=== PATIENT | female | born 1940 | race Caucasian/White ===

== ENCOUNTER 2017-10-20 15:03 | Day surgery (SDC) | payer MEDICARE, BC ==
[2017-10-17 11:34] LABS: BASOPHILS % (AUTO) 0.5 % (0-1); EOSINOPHILS # (AUTO) 0.1 X10'3 (0-0.9); EOSINOPHILS % (AUTO) 1.5 % (0-6); HEMATOCRIT 39.1 % (35.0-45.0); HEMOGLOBIN 13.1 g/dl (12.0-16.0); LYMPHOCYTES # (AUTO) 1.2 X10'3 (1.1-4.8); LYMPHOCYTES % (AUTO) 30.9 % (21-51); MEAN CORPUSCULAR HGB CONC 33.6 % (33.0-36.5); MEAN CORPUSCULAR VOLUME 92.2 FL (78-98); MEAN PLATELET VOLUME 7.7 FL (7.4-10.4); MONOCYTES # (AUTO) 0.3 X10'3 (0-0.9); MONOCYTES % (AUTO) 7.9 % (2-12); NEUTROPHILS # (AUTO) 2.4 X10'3 (1.8-7.7); NEUTROPHILS % (AUTO) 59.2 % (42-75); PLATELET COUNT 274 X10'3 (140-440); RED BLOOD COUNT 4.24 X10'6 (4.20-5.60); RED CELL DISTRIBUTION WIDTH 12.7 % (11.5-14.5)
[2017-10-17 11:44] LABS: ALBUMIN 4.1 G/DL (3.4-5.0); ANION GAP 7 (8-16); BLOOD UREA NITROGEN 14 MG/DL (7-18); CALCIUM 9.4 MG/DL (8.5-10.1); CHLORIDE 109 MMOL/L (99-107); GLUCOSE 102 MG/DL (70-104); POTASSIUM 4.4 MMOL/L (3.5-5.1); SODIUM 145 MMOL/L (135-145); eGFR 81 ML/MIN
[2017-10-17 11:45] LABS: CLARITY,URINE Clear (Clear); COLOR,URINE Yellow (Yellow); GLUCOSE, URINE Negative (Neg); KETONES,URINE Trace mg/dl (Neg); LEUKOCYTE ESTERASE ,URINE Small (Neg); NITRITES, URINE Negative (Neg); OCCULT BLOOD,URINE Negative (Neg); PH,URINE 5.5 (4.8-8.0); PROTEIN,URINE Negative (Neg); UROBILINOGEN,URINE 0.2 E.U/dL (0.2-1.0)
[2017-10-17 11:46] LABS: PARTIAL THROMBOPLASTIN TIME 24 SECONDS (22-32); PROTHROMBIN TIME 10.2 SECONDS (9.0-12.0)
[2017-10-17 11:48] LABS: UA COLLECTION TYPE NON-SPECIFIED
[2017-10-17 12:04] LABS: MUCUS STRANDS FEW /LPF (Neg); SQUAMOUS EPITHELIAL CELL,UR FEW /LPF (FEW)
[2017-10-17 12:07] LABS: BACTERIA,URINE NONE SEEN /HPF (Neg); RBC,URINE NONE SEEN /HPF (0-2); WBC,URINE 0-4 /HPF (0-4)
[~2017-10-20] VITALS: Ht 167.6 cm; Wt 60.9 kg
[~2017-10-20 15:03] MED LIST: CEPH500C5 PO; CLOP75TA15 PO
[2017-10-20] MEDS ORDERED: CIP750T PO (15:35)
[2017-10-20 15:36] VITALS: BP 129/97
[2017-10-20] MEDS ORDERED: diphenhydrAMINE 25mg capsule PO PRN (15:40)
[2017-10-20] MEDS ORDERED: LORazepam 0.5 MG tablet PO PRN (15:40)
[2017-10-20] MEDS ORDERED: NS IV SCH (16:00)
[2017-10-20] MEDS ORDERED: CEFAZOLIN IV SCH (16:00)
[2017-10-20] MEDS ORDERED: LIDOcaine 1% (10mg/ml) 2ml vial ONE (17:10)
[2017-10-20] MEDS ORDERED: cefazolin 1gm/NS 100mL 100 ML IV ONE (17:31)
[2017-10-20] MEDS ORDERED: ceFAZolin 1000mg inj ONE (17:32)
[2017-10-20] MEDS ORDERED: LIDOcaine 1.5% w/epinephrine 1:200,000 5ml ampul ONE (17:32)
[2017-10-20] MEDS ORDERED: fentaNYL/PF 50MCG/1 ML 2ML syringe ONE (17:32)
[2017-10-20] MEDS ORDERED: midazolam 2 mg/2 ml injection ONE (17:32)
[2017-10-20] MEDS ORDERED: VITE1000C PO (17:33)
[2017-10-20] MEDS ORDERED: FLAX100025 PO (17:33)
[2017-10-20] MEDS ORDERED: CHOL100046 PO (17:33)
[2017-10-20] MEDS ORDERED: CHON250C PO (17:33)
[2017-10-20] MEDS ORDERED: lipoflavonoid PO (17:33)
[2017-10-20] MEDS ORDERED: ASCO1CAP3 PO (17:33)
[2017-10-20] MEDS ORDERED: MULT-1096 PO (17:33)
[2017-10-20 18:43] VITALS: BP 156/85
[2017-10-20 18:47] VITALS: BP 150/79
[2017-10-20 19:15] VITALS: BP 153/81
[2017-10-20 19:30] VITALS: BP 144/72
[2017-10-20] MEDS ORDERED: normal saline 1000ml 1,000 ML IV SCH (19:40)
[2017-10-20 19:45] VITALS: BP 106/60
== END 2017-10-20 20:05 | disposition home or self-care (01) ==
LOC: SSTAY O 15:03
PROVIDERS: ATTEND Internal Medicine Interventional Cardiology
DX: T82.7XXA Infection and inflammatory reaction due to other cardiac and vascular devices, implants and grafts, initial encounter (principal); I65.23 Occlusion and stenosis of bilateral carotid arteries; E78.4 Other hyperlipidemia; I95.1 Orthostatic hypotension; I36.1 Nonrheumatic tricuspid (valve) insufficiency; I44.1 Atrioventricular block, second degree; Z88.2 Allergy status to sulfonamides; Z88.8 Allergy status to other drugs, medicaments and biological substances; Z86.73 Personal history of transient ischemic attack (TIA), and cerebral infarction without residual deficits; Z90.710 Acquired absence of both cervix and uterus; Z98.890 Other specified postprocedural states; Z79.899 Other long term (current) drug therapy; Y83.8 Other surgical procedures as the cause of abnormal reaction of the patient, or of later complication, without mention of misadventure at the time of the procedure; Y92.89 Other specified places as the place of occurrence of the external cause
CPT/HCPCS: 10140; 36415; 80048; 81001; 85025; 85610; 85730; 87088; A6260; J0690; J2250; J3010; J3490; J7030; Q0163; 33222; 99152; A4620

== ENCOUNTER 2017-11-02 17:10 | Inpatient (IN) | payer MEDICARE, BC ==
[~2017-11-02] VITALS: Ht 162.6 cm; Wt 63.6 kg
[~2017-11-02 17:10] MED LIST changes: +ASCO1CAP3 PO; -CEPH500C5 PO; +CHOL100046 PO; +CHON250C PO; +CIP750T PO; +FLAX100025 PO; +MULT-1096 PO; +VITE1000C PO; +lipoflavonoid PO
[2017-11-02 17:52] LABS: BASOPHILS % (AUTO) 0 % (0-1); EOSINOPHILS % (AUTO) 0.1 % (0-6); HEMATOCRIT 39.1 % (35.0-45.0); HEMOGLOBIN 13.4 g/dl (12.0-16.0); LYMPHOCYTES # (AUTO) 0.1 X10'3 (1.1-4.8); LYMPHOCYTES % (AUTO) 1.4 % (21-51); MEAN CORPUSCULAR HEMOGLOBIN 30.9 PG (27.0-31.0); MEAN CORPUSCULAR HGB CONC 34.3 % (33.0-36.5); MEAN CORPUSCULAR VOLUME 90.2 FL (78-98); MEAN PLATELET VOLUME 10.2 FL (7.4-10.4); MONOCYTES % (AUTO) 0.6 % (2-12); NEUTROPHILS # (AUTO) 7.7 X10'3 (1.8-7.7); NEUTROPHILS % (AUTO) 97.9 % (42-75); PLATELET COUNT 99 X10'3 (140-440); RED BLOOD COUNT 4.34 X10'6 (4.20-5.60); RED CELL DISTRIBUTION WIDTH 14.8 % (11.5-14.5); WHITE BLOOD COUNT 7.9 X10'3 (4.5-11.0)
[2017-11-02 18:02] LABS: INR 1.1 INR; PARTIAL THROMBOPLASTIN TIME 24 SECONDS (22-32); PROTHROMBIN TIME 11.3 SECONDS (9.0-12.0)
[2017-11-02 18:09] LABS: ANISOCYTOSIS 1+; PLATELET ESTIMATE DECREASED; TOTAL CELLS COUNTED 100
[2017-11-02 18:10] LABS: BURR CELLS 2+; POIKILOCYTOSIS FEW; TOXIC GRANULATION 3+; TOXIC VACUOLATION 1+
[2017-11-02 18:15] LABS: ALANINE AMINOTRANSFERASE 39 U/L (12-78); ALBUMIN 2.6 G/DL (3.4-5.0); ALBUMIN/GLOBULIN RATIO 0.7 (1.1-1.5); ALKALINE PHOSPHATASE 193 IU/L (46-116); ANION GAP 13 (8-16); ASPARTATE AMINO TRANSFERASE 72 U/L (10-37); BILIRUBIN,TOTAL 1.6 MG/DL (0.1-1.0); BLOOD UREA NITROGEN 39 MG/DL (7-18); BUN/CREATININE RATIO 27.9 (6.6-38.0); CALCIUM 9.4 MG/DL (8.5-10.1); CHLORIDE 104 MMOL/L (99-107); CREATINE KINASE 100 U/L (26-192); GLUCOSE 146 MG/DL (70-104); SODIUM 138 MMOL/L (135-145); TOTAL CARBON DIOXIDE 21.1 MMOL/L (24-32); TOTAL PROTEIN 6.4 G/DL (6.4-8.2); eGFR 36 ML/MIN
[2017-11-02 18:17] LABS: POTASSIUM 3.8 MMOL/L (3.5-5.1)
[2017-11-02] MEDS ORDERED: normal saline 1000ml 1,000 ML IV ONE ×2 (18:40→19:50)
[2017-11-02] MEDS ORDERED: methylPREDNISolone sod succ 125mg/2ml vial IV ONE (18:40)
[2017-11-02] MEDS ORDERED: dexamethasone 4mg/ml inj IV ONE (19:50)
[2017-11-02 20:12] LABS: CLARITY,URINE SLIGHTLY CLOUDY (Clear); COLOR,URINE AMBER (Yellow); GLUCOSE, URINE NEGATIVE (Neg); KETONES,URINE NEGATIVE (Neg); LEUKOCYTE ESTERASE ,URINE NEGATIVE (Neg); NITRITES, URINE NEGATIVE (Neg); OCCULT BLOOD,URINE SMALL (Neg); PH,URINE 5.5 (4.8-8.0); PROTEIN,URINE 100 mg/dl (Neg)
[2017-11-02 20:13] LABS: UA COLLECTION TYPE STRAIGHT CATH
[2017-11-02 20:29] LABS: HYALINE CASTS 0-3 /LPF (NEGATIVE); WBC,URINE 0-4 /HPF (0-4)
[2017-11-02 20:30] LABS: AMORPHOUS URATES 2+; BACTERIA,URINE NONE SEEN /HPF (Neg); MUCUS STRANDS FEW /LPF (Neg); SQUAMOUS EPITHELIAL CELL,UR NONE SEEN /LPF (FEW)
[2017-11-02] MEDS ORDERED: morphine 2 MG/ML inj. syringe IV ONE (21:55)
[2017-11-02] MEDS ORDERED: mag hydrox/Alum hydrox/simeth 30ml oral suspension PO PRN (23:25)
[2017-11-02] MEDS ORDERED: ondansetron/PF 4mg/2ml inj IV PRN (23:25)
[2017-11-02] MEDS ORDERED: acetaminophen 325mg tablet PO PRN (23:25)
[2017-11-02] MEDS ORDERED: morphine 2 MG/ML inj. syringe IV PRN (23:25)
[2017-11-03] MEDS ORDERED: vancomycin/NS 1 GM ADD-VANTAGE 250 ML IV ONE (00:30)
[2017-11-03] MEDS ORDERED: vancomycin/NS 1 GM ADD-VANTAGE 250 ML IV SCH (02:00)
[2017-11-03 06:01] VITALS: BP 127/67
[2017-11-03] MEDS: morphine 2 MG/ML inj. syringe IV PRN ×2 (06:04→14:22)
[2017-11-03] MEDS ORDERED: ascorbic acid 500mg tablet PO SCH (08:00)
[2017-11-03] MEDS ORDERED: heparin, porcine 5000 units/ml vial SQ SCH (08:00)
[2017-11-03] MEDS ORDERED: VITAMIN E PO SCH (08:00)
[2017-11-03] MEDS ORDERED: ASCORBIC ACID PO SCH (08:00)
[2017-11-03] MEDS: clopidogrel 75mg tablet PO SCH (08:05)
[2017-11-03] MEDS: methylPREDNISolone sod succ 125mg/2ml vial IV SCH ×3 (08:11→15:49)
[2017-11-03 09:14] LABS: ALANINE AMINOTRANSFERASE 24 U/L (12-78); ALBUMIN/GLOBULIN RATIO 0.6 (1.1-1.5); ALKALINE PHOSPHATASE 163 IU/L (46-116); ANION GAP 16 (8-16); ASPARTATE AMINO TRANSFERASE 47 U/L (10-37); BILIRUBIN,TOTAL 1.5 MG/DL (0.1-1.0); BLOOD UREA NITROGEN 37 MG/DL (7-18); BUN/CREATININE RATIO 33.6 (6.6-38.0); CALCIUM 9.1 MG/DL (8.5-10.1); CHLORIDE 109 MMOL/L (99-107); GLUCOSE 110 MG/DL (70-104); POTASSIUM 3.3 MMOL/L (3.5-5.1); SODIUM 143 MMOL/L (135-145); TOTAL CARBON DIOXIDE 18.4 MMOL/L (24-32); TOTAL PROTEIN 5.5 G/DL (6.4-8.2); eGFR 48 ML/MIN
[2017-11-03 09:17] LABS: BASOPHILS % (AUTO) 0 % (0-1); EOSINOPHILS % (AUTO) 0.3 % (0-6); HEMATOCRIT 38.6 % (35.0-45.0); HEMOGLOBIN 13.2 g/dl (12.0-16.0); LYMPHOCYTES # (AUTO) 0.2 X10'3 (1.1-4.8); LYMPHOCYTES % (AUTO) 1.6 % (21-51); MEAN CORPUSCULAR HEMOGLOBIN 30.8 PG (27.0-31.0); MEAN CORPUSCULAR HGB CONC 34.2 % (33.0-36.5); MEAN CORPUSCULAR VOLUME 90.2 FL (78-98); MEAN PLATELET VOLUME 11.1 FL (7.4-10.4); MONOCYTES # (AUTO) 0.1 X10'3 (0-0.9); MONOCYTES % (AUTO) 0.4 % (2-12); NEUTROPHILS # (AUTO) 12.4 X10'3 (1.8-7.7); NEUTROPHILS % (AUTO) 97.7 % (42-75); PLATELET COUNT 92 X10'3 (140-440); RED BLOOD COUNT 4.28 X10'6 (4.20-5.60); RED CELL DISTRIBUTION WIDTH 14.6 % (11.5-14.5); WHITE BLOOD COUNT 12.7 X10'3 (4.5-11.0)
[2017-11-03 10:00] VITALS: BP 121/71
[2017-11-03 10:22] LABS: BANDS% (MANUAL) 13 % (0-10); LYMPHOCYTES % (MANUAL) 0 % (21-51); NEUTROPHILS % (MANUAL) 87 % (42-75); TOTAL CELLS COUNTED 100
[2017-11-03 10:23] LABS: BASOPHILS % (MANUAL) 0 % (0-1); EOSINOPHILS % (MANUAL) 0 % (0-6); LARGE PLATELETS FEW; MONOCYTES % (MANUAL) 0 % (2-12); PLATELET ESTIMATE DECREASED; POIKILOCYTOSIS 1+
[2017-11-03 10:24] LABS: ELLIPTOCYTES 1+; TARGET CELLS FEW; TOXIC GRANULATION 3+; TOXIC VACUOLATION 2+
[2017-11-03 10:25] LABS: BURR CELLS 3+
[2017-11-03] MEDS ORDERED: potassium Cl 40MEQ/NS 500ml 500 ML IV PRN ×2 (11:45)
[2017-11-03] MEDS ORDERED: potassium Cl 20 mEq SR tablet PO PRN (11:45)
[2017-11-03] MEDS ORDERED: magnesium Cl slow-release 64mg tablet PO PRN (11:45)
[2017-11-03] MEDS ORDERED: magnesium 4gm in 100ml NS 100 ML IV PRN (11:45)
[2017-11-03] MEDS ORDERED: magnesium 2GM in 50ml NS 50 ML IV PRN (11:45)
[2017-11-03] MEDS: potassium Cl 20 mEq SR tablet PO PRN ×2 (12:57→21:27)
[2017-11-03] MEDS: lactobacillus rhamnosus 10,000 MMU CELLS/CAPSULE PO SCH (17:11)
[2017-11-03 18:00] VITALS: BP 111/53
[2017-11-03 22:00] VITALS: BP 90/72
[2017-11-04] MEDS: methylPREDNISolone sod succ 125mg/2ml vial IV SCH ×3 (00:27→15:47)
[2017-11-04] MEDS: normal saline 1000ml 1,000 ML IV SCH ×3 (00:28→18:25)
[2017-11-04] MEDS: vancomycin/NS 1 GM ADD-VANTAGE 250 ML IV SCH (00:28)
[2017-11-04 06:00] VITALS: BP 132/71
[2017-11-04 07:03] LABS: MAGNESIUM 1.9 MG/DL (1.5-2.4)
[2017-11-04] MEDS: K and/or MAG REPLACEMENT MC SCH (08:00)
[2017-11-04 08:25] LABS: CRP-CARDIAC RISK > 90.000 MG/L
[2017-11-04] MEDS: morphine 2 MG/ML inj. syringe IV PRN ×2 (08:26→15:47)
[2017-11-04] MEDS: lactobacillus rhamnosus 10,000 MMU CELLS/CAPSULE PO SCH ×2 (08:27→17:48)
[2017-11-04] MEDS: clopidogrel 75mg tablet PO SCH (08:27)
[2017-11-04 10:00] VITALS: BP 113/66
[2017-11-04 17:00] VITALS: BP 118/81
[2017-11-04] MEDS ORDERED: potassium Cl 40MEQ/NS 500ml 500 ML IV PRN ×2 (17:25)
[2017-11-04] MEDS ORDERED: potassium Cl 20 mEq SR tablet PO PRN ×2 (17:25)
[2017-11-04 22:00] VITALS: BP 128/65
[2017-11-05] MEDS: vancomycin/NS 1 GM ADD-VANTAGE 250 ML IV SCH (00:12)
[2017-11-05] MEDS: morphine 2 MG/ML inj. syringe IV PRN ×4 (02:14→17:13)
[2017-11-05] MEDS: normal saline 1000ml 1,000 ML IV SCH ×2 (02:28→13:00)
[2017-11-05 05:00] VITALS: BP 127/86
[2017-11-05] MEDS: clopidogrel 75mg tablet PO SCH (07:37)
[2017-11-05] MEDS: lactobacillus rhamnosus 10,000 MMU CELLS/CAPSULE PO SCH ×2 (07:37→17:01)
[2017-11-05] MEDS: K and/or MAG REPLACEMENT MC SCH ×2 (08:00)
[2017-11-05 08:21] LABS: BASOPHILS % (AUTO) 0 % (0-1); EOSINOPHILS % (AUTO) 0 % (0-6); HEMATOCRIT 41.6 % (35.0-45.0); HEMOGLOBIN 14.5 g/dl (12.0-16.0); LYMPHOCYTES # (AUTO) 0.7 X10'3 (1.1-4.8); MEAN CORPUSCULAR HEMOGLOBIN 30.9 PG (27.0-31.0); MEAN CORPUSCULAR HGB CONC 34.7 % (33.0-36.5); MEAN CORPUSCULAR VOLUME 88.9 FL (78-98); MEAN PLATELET VOLUME 11.3 FL (7.4-10.4); MONOCYTES # (AUTO) 0.7 X10'3 (0-0.9); MONOCYTES % (AUTO) 2.8 % (2-12); NEUTROPHILS # (AUTO) 22.9 X10'3 (1.8-7.7); NEUTROPHILS % (AUTO) 94.2 % (42-75); PLATELET COUNT 71 X10'3 (140-440); RED BLOOD COUNT 4.68 X10'6 (4.20-5.60); WHITE BLOOD COUNT 24.4 X10'3 (4.5-11.0)
[2017-11-05] MEDS: cefazolin 1gm/NS 100mL 100 ML IV SCH ×2 (08:33→15:31)
[2017-11-05 08:39] LABS: ALBUMIN 1.3 G/DL (3.4-5.0); ANION GAP 13 (8-16); BLOOD UREA NITROGEN 73 MG/DL (7-18); BUN/CREATININE RATIO 46.8 (6.6-38.0); C-REACTIVE PROTEIN 13.85 MG/DL (0.0-0.5); CALCIUM 8.7 MG/DL (8.5-10.1); CHLORIDE 111 MMOL/L (99-107); CREATININE 1.56 MG/DL (0.40-0.90); GLUCOSE 166 MG/DL (70-104); MAGNESIUM 1.9 MG/DL (1.5-2.4); POTASSIUM 4.7 MMOL/L (3.5-5.1); SODIUM 142 MMOL/L (135-145); TOTAL CARBON DIOXIDE 18.1 MMOL/L (24-32); eGFR 32 ML/MIN
[2017-11-05 08:52] LABS: TOTAL CELLS COUNTED 100
[2017-11-05 08:57] LABS: PLATELET ESTIMATE DECREASED; POIKILOCYTOSIS 2+
[2017-11-05 09:00] LABS: BURR CELLS 3+; ELLIPTOCYTES FEW; SCHISTOCYTES FEW
[2017-11-05 09:01] LABS: TARGET CELLS FEW
[2017-11-05 09:02] LABS: TOXIC GRANULATION 1+; TOXIC VACUOLATION 2+
[2017-11-05 10:00] VITALS: BP 112/68
[2017-11-05] MEDS ORDERED: HYDROcodone/acetaminophen 5mg/325mg tablet PO PRN (15:00)
[2017-11-05] MEDS: HYDROcodone/acetaminophen 10/325mg tab PO PRN (15:31)
[2017-11-05] MEDS: Protein Shake (high protein) 240ml (8oz) cup PO SCH (18:00)
[2017-11-05 19:39] VITALS: BP 128/82
[2017-11-05 22:00] VITALS: BP 109/62
[2017-11-06] MEDS ORDERED: VANCOMYCIN LEVEL IV ONE (00:30)
[2017-11-06] MEDS: cefazolin 1gm/NS 100mL 100 ML IV SCH (00:59)
[2017-11-06] MEDS: normal saline 1000ml 1,000 ML IV SCH (00:59)
[2017-11-06] MEDS: HYDROcodone/acetaminophen 10/325mg tab PO PRN ×4 (00:59→23:22)
[2017-11-06 01:36] LABS: ALBUMIN 1.1 G/DL (3.4-5.0); ANION GAP 14 (8-16); BLOOD UREA NITROGEN 77 MG/DL (7-18); BUN/CREATININE RATIO 53.1 (6.6-38.0); CALCIUM 8.5 MG/DL (8.5-10.1); CHLORIDE 113 MMOL/L (99-107); CREATININE 1.45 MG/DL (0.40-0.90); GLUCOSE 180 MG/DL (70-104); MAGNESIUM 2.1 MG/DL (1.5-2.4); POTASSIUM 4.8 MMOL/L (3.5-5.1); SODIUM 145 MMOL/L (135-145); TOTAL CARBON DIOXIDE 17.8 MMOL/L (24-32); VANCOMYCIN,TROUGH 12.9 UG/ML (6.0-14.0); eGFR 35 ML/MIN
[2017-11-06] MEDS: vancomycin/NS 1 GM ADD-VANTAGE 250 ML IV SCH (01:52)
[2017-11-06] MEDS: morphine 2 MG/ML inj. syringe IV PRN ×4 (01:57→16:46)
[2017-11-06 06:00] VITALS: BP 104/61
[2017-11-06] MEDS: K and/or MAG REPLACEMENT MC SCH ×2 (07:21→08:00)
[2017-11-06] MEDS: clopidogrel 75mg tablet PO SCH (07:28)
[2017-11-06] MEDS: lactobacillus rhamnosus 10,000 MMU CELLS/CAPSULE PO SCH ×2 (07:28→16:46)
[2017-11-06] MEDS ORDERED: potassium Cl 40MEQ/NS 500ml 500 ML IV PRN ×2 (07:50)
[2017-11-06] MEDS ORDERED: magnesium 2GM in 50ml NS 50 ML IV PRN (07:50)
[2017-11-06] MEDS ORDERED: potassium Cl 20 mEq SR tablet PO PRN ×2 (07:50)
[2017-11-06] MEDS ORDERED: magnesium 4gm in 100ml NS 100 ML IV PRN (07:50)
[2017-11-06] MEDS ORDERED: magnesium Cl slow-release 64mg tablet PO PRN (07:50)
[2017-11-06] MEDS ORDERED: sodium chloride 0.45% 1,000 ML IV ONE (08:00)
[2017-11-06] MEDS ORDERED: Protein Shake (high protein) 240ml (8oz) cup PO SCH (08:00)
[2017-11-06] MEDS: Protein Shake (high protein) 240ml (8oz) cup PO SCH ×3 (08:39→18:46)
[2017-11-06] MEDS: rifampin 300mg capsule PO SCH ×2 (08:41→19:34)
[2017-11-06] MEDS: sodium chloride 0.45% 1,000 ML IV SCH ×3 (09:50→23:22)
[2017-11-06] MEDS: vancomycin inj. 750 MG in normal saline 250ml IV soln 250 ML IV SCH ×2 (09:50→19:34)
[2017-11-06 10:00] VITALS: BP 115/60
[2017-11-06 10:20] LABS: BASOPHILS % (AUTO) 0 % (0-1); EOSINOPHILS % (AUTO) 0 % (0-6); HEMATOCRIT 40.3 % (35.0-45.0); HEMOGLOBIN 13.7 g/dl (12.0-16.0); LYMPHOCYTES # (AUTO) 1.1 X10'3 (1.1-4.8); LYMPHOCYTES % (AUTO) 5.4 % (21-51); MEAN CORPUSCULAR HEMOGLOBIN 30.6 PG (27.0-31.0); MEAN CORPUSCULAR VOLUME 89.9 FL (78-98); MEAN PLATELET VOLUME 10.7 FL (7.4-10.4); MONOCYTES % (AUTO) 0.2 % (2-12); NEUTROPHILS # (AUTO) 18.6 X10'3 (1.8-7.7); NEUTROPHILS % (AUTO) 94.4 % (42-75); PLATELET COUNT 93 X10'3 (140-440); RED BLOOD COUNT 4.49 X10'6 (4.20-5.60); RED CELL DISTRIBUTION WIDTH 15.5 % (11.5-14.5); WHITE BLOOD COUNT 19.7 X10'3 (4.5-11.0)
[2017-11-06 11:30] LABS: TOTAL CELLS COUNTED 100
[2017-11-06 11:31] LABS: PLATELET ESTIMATE DECREASED
[2017-11-06 11:32] LABS: TOXIC GRANULATION 1+; TOXIC VACUOLATION 2+
[2017-11-06 11:39] LABS: BURR CELLS 2+; ELLIPTOCYTES FEW; SPHEROCYTES FEW
[2017-11-06 11:43] LABS: LARGE PLATELETS FEW
[2017-11-06] MEDS: magnesium hydroxide 30ml (MOM) UD suspension PO PRN (14:45)
[2017-11-06 18:00] VITALS: BP 109/60
[2017-11-06 22:00] VITALS: BP 104/67
[2017-11-07] MEDS: morphine 2 MG/ML inj. syringe IV PRN ×2 (02:05→07:10)
[2017-11-07 05:26] LABS: BASOPHILS # (AUTO) 0.1 X10'3 (0-0.2); EOSINOPHILS # (AUTO) 0.1 X10'3 (0-0.9); EOSINOPHILS % (AUTO) 0.6 % (0-6); HEMATOCRIT 33.7 % (35.0-45.0); HEMOGLOBIN 11.3 g/dl (12.0-16.0); LYMPHOCYTES # (AUTO) 0.7 X10'3 (1.1-4.8); LYMPHOCYTES % (AUTO) 5.6 % (21-51); MEAN CORPUSCULAR HEMOGLOBIN 30.1 PG (27.0-31.0); MEAN CORPUSCULAR HGB CONC 33.6 % (33.0-36.5); MEAN CORPUSCULAR VOLUME 89.7 FL (78-98); MEAN PLATELET VOLUME 10.2 FL (7.4-10.4); MONOCYTES % (AUTO) 0.1 % (2-12); NEUTROPHILS # (AUTO) 12.1 X10'3 (1.8-7.7); NEUTROPHILS % (AUTO) 92.7 % (42-75); PLATELET COUNT 91 X10'3 (140-440); RED BLOOD COUNT 3.75 X10'6 (4.20-5.60); RED CELL DISTRIBUTION WIDTH 15.3 % (11.5-14.5)
[2017-11-07 05:35] LABS: ALBUMIN 0.9 G/DL (3.4-5.0); ANION GAP 12 (8-16); BLOOD UREA NITROGEN 68 MG/DL (7-18); BUN/CREATININE RATIO 53.1 (6.6-38.0); CALCIUM 8.2 MG/DL (8.5-10.1); CHLORIDE 114 MMOL/L (99-107); CREATININE 1.28 MG/DL (0.40-0.90); GLUCOSE 104 MG/DL (70-104); MAGNESIUM 2.1 MG/DL (1.5-2.4); SODIUM 144 MMOL/L (135-145); TOTAL CARBON DIOXIDE 18.4 MMOL/L (24-32); eGFR 40 ML/MIN
[2017-11-07 06:00] VITALS: BP 106/58
[2017-11-07 06:09] LABS: TOTAL CELLS COUNTED 100
[2017-11-07 06:10] LABS: ANISOCYTOSIS FEW; BURR CELLS 2+; ELLIPTOCYTES FEW; PLATELET ESTIMATE DECREASED; SPHEROCYTES FEW; TOXIC GRANULATION 1+
[2017-11-07] MEDS: K and/or MAG REPLACEMENT MC SCH (06:41)
[2017-11-07] MEDS: sodium chloride 0.45% 1,000 ML IV SCH ×2 (07:09→19:47)
[2017-11-07] MEDS: pantoprazole 40mg Tablet.DR PO SCH (07:10)
[2017-11-07] MEDS: clopidogrel 75mg tablet PO SCH (07:10)
[2017-11-07] MEDS: lactobacillus rhamnosus 10,000 MMU CELLS/CAPSULE PO SCH ×2 (07:10→19:47)
[2017-11-07] MEDS: vancomycin inj. 750 MG in normal saline 250ml IV soln 250 ML IV SCH ×2 (07:10→21:40)
[2017-11-07] MEDS: rifampin 300mg capsule PO SCH ×2 (07:10→19:47)
[2017-11-07] MEDS: Protein Shake (high protein) 240ml (8oz) cup PO SCH ×3 (08:00→18:00)
[2017-11-07 10:00] VITALS: BP 132/63
[2017-11-07] MEDS: HYDROcodone/acetaminophen 10/325mg tab PO PRN ×2 (11:41→19:47)
[2017-11-07] MEDS ORDERED: morphine 5 MG/ML injection IV PRN ×2 (14:16→14:17)
[2017-11-07 18:00] VITALS: BP 108/60
[2017-11-07] MEDS ORDERED: VANCOMYCIN LEVEL IV NR (19:30)
[2017-11-07] MEDS ORDERED: HYDROmorphone inj. 0.5 MG/0.5 ML DISP.SYRIN IV PRN (21:30)
[2017-11-07 22:00] VITALS: BP 119/57
[2017-11-08] MEDS: sodium chloride 0.45% 1,000 ML IV SCH ×3 (00:17→17:27)
[2017-11-08] MEDS: HYDROcodone/acetaminophen 10/325mg tab PO PRN (01:17)
[2017-11-08 02:00] VITALS: BP 116/67
[2017-11-08 04:02] LABS: BASOPHILS # (AUTO) 0.2 X10'3 (0-0.2); EOSINOPHILS # (AUTO) 0.3 X10'3 (0-0.9); HEMATOCRIT 33.6 % (35.0-45.0); HEMOGLOBIN 11.6 g/dl (12.0-16.0); LYMPHOCYTES # (AUTO) 0.8 X10'3 (1.1-4.8); LYMPHOCYTES % (AUTO) 5.1 % (21-51); MEAN CORPUSCULAR HEMOGLOBIN 30.5 PG (27.0-31.0); MEAN CORPUSCULAR HGB CONC 34.4 % (33.0-36.5); MEAN CORPUSCULAR VOLUME 88.8 FL (78-98); MEAN PLATELET VOLUME 9.7 FL (7.4-10.4); MONOCYTES # (AUTO) 0.1 X10'3 (0-0.9); MONOCYTES % (AUTO) 0.5 % (2-12); NEUTROPHILS # (AUTO) 13.9 X10'3 (1.8-7.7); NEUTROPHILS % (AUTO) 91.4 % (42-75); PLATELET COUNT 114 X10'3 (140-440); RED BLOOD COUNT 3.79 X10'6 (4.20-5.60); WHITE BLOOD COUNT 15.2 X10'3 (4.5-11.0)
[2017-11-08 04:15] LABS: ALBUMIN 0.8 G/DL (3.4-5.0); ANION GAP 12 (8-16); BLOOD UREA NITROGEN 54 MG/DL (7-18); BUN/CREATININE RATIO 47.8 (6.6-38.0); CALCIUM 7.9 MG/DL (8.5-10.1); CHLORIDE 114 MMOL/L (99-107); CREATININE 1.13 MG/DL (0.40-0.90); GLUCOSE 111 MG/DL (70-104); MAGNESIUM 2.1 MG/DL (1.5-2.4); POTASSIUM 4.8 MMOL/L (3.5-5.1); SODIUM 145 MMOL/L (135-145); TOTAL CARBON DIOXIDE 19.4 MMOL/L (24-32); eGFR 47 ML/MIN
[2017-11-08 04:59] LABS: PLATELET ESTIMATE DECREASED; TOTAL CELLS COUNTED 100
[2017-11-08 05:00] LABS: BURR CELLS 2+; ELLIPTOCYTES FEW
[2017-11-08 06:00] VITALS: BP 110/68
[2017-11-08] MEDS: K and/or MAG REPLACEMENT MC SCH (07:01)
[2017-11-08] MEDS: Protein Shake (high protein) 240ml (8oz) cup PO SCH ×2 (08:00→13:00)
[2017-11-08] MEDS: lactobacillus rhamnosus 10,000 MMU CELLS/CAPSULE PO SCH (09:04)
[2017-11-08] MEDS: rifampin 300mg capsule PO SCH (09:04)
[2017-11-08] MEDS: clopidogrel 75mg tablet PO SCH (09:04)
[2017-11-08] MEDS: pantoprazole 40mg Tablet.DR PO SCH (09:04)
[2017-11-08] MEDS: vancomycin inj. 750 MG in normal saline 250ml IV soln 250 ML IV SCH (09:05)
[2017-11-08] MEDS: HYDROmorphone inj. 0.5 MG/0.5 ML DISP.SYRIN IV PRN ×2 (09:16→17:23)
[2017-11-08] MEDS: magnesium hydroxide 30ml (MOM) UD suspension PO PRN (09:17)
[2017-11-08] MEDS ORDERED: guaiFENesin/DM oral syrup 5 ML CUP PO PRN (09:55)
[2017-11-08 10:00] VITALS: BP 118/73
[2017-11-08] MEDS ORDERED: lactobacillus rhamnosus 10,000 MMU CELLS/CAPSULE PO SCH (17:30)
[2017-11-08] MEDS ORDERED: vancomycin inj 500 MG in normal saline 100ml IV soln 100 ML IV SCH (20:00)
[2017-11-10] MEDS ORDERED: VANCOMYCIN LEVEL IV NR (07:30)
== END 2017-11-08 19:15 | disposition short-term general hospital (02) | DRG 314 ==
LOC: ER 17:10 → ED HOLD 23:22 → ORTHO 4S 11-03 05:50
PROVIDERS: ADMIT Internal Medicine; ATTEND Internal Medicine
PROC: 02HV33Z Insertion of Infusion Device into Superior Vena Cava, Percutaneous Approach (ICD-10-PCS; principal; 2017-11-04)
PROC: B548ZZA Ultrasonography of Superior Vena Cava, Guidance (ICD-10-PCS; 2017-11-04)
PROC: CP2YYZZ Tomographic (Tomo) Nuclear Medicine Imaging of Musculoskeletal System, Other using Other Radionuclide (ICD-10-PCS; 2017-11-05)
DX: T82.7XXA Infection and inflammatory reaction due to other cardiac and vascular devices, implants and grafts, initial encounter (principal); A41.02 Sepsis due to Methicillin resistant Staphylococcus aureus; I76 Septic arterial embolism; N17.9 Acute kidney failure, unspecified; I44.1 Atrioventricular block, second degree; D69.6 Thrombocytopenia, unspecified; M77.9 Enthesopathy, unspecified; R79.82 Elevated C-reactive protein (CRP); E78.5 Hyperlipidemia, unspecified; Z60.2 Problems related to living alone; M13.0 Polyarthritis, unspecified; T36.8X5A Adverse effect of other systemic antibiotics, initial encounter; Y83.1 Surgical operation with implant of artificial internal device as the cause of abnormal reaction of the patient, or of later complication, without mention of misadventure at the time of the procedure; Z90.710 Acquired absence of both cervix and uterus; Z95.0 Presence of cardiac pacemaker; Z88.2 Allergy status to sulfonamides; Z88.1 Allergy status to other antibiotic agents; Z88.8 Allergy status to other drugs, medicaments and biological substances; Z79.02 Long term (current) use of antithrombotics/antiplatelets; Z79.899 Other long term (current) drug therapy; Z87.440 Personal history of urinary (tract) infections; Z86.73 Personal history of transient ischemic attack (TIA), and cerebral infarction without residual deficits; Y92.89 Other specified places as the place of occurrence of the external cause
CPT/HCPCS: 36415; 36569; 71045; 71250; 76937; 78315; 80048; 80053; 80202; 81001; 82550; 83605; 83735; 84145; 85025; 85610; 85730; 86140; 87040; 87070; 87077; 87186; 93005; 93306; 96361; 96374; 96375; 97110; 97161; 97530; 99285; A4315; A6213; A9503; J0690; J1100; J1170; J1644; J2270; J2405; J2930; J3370; J7030

== ENCOUNTER 2019-08-16 04:14 | Outpatient (CLI) | payer SELFPAY ==
[~2019-08-16 04:14] MED LIST changes: -CIP750T PO; -FLAX100025 PO; +FLAX10007 PO
== END 2019-08-16 23:59 | disposition home or self-care (01) ==
LOC: HW VAS 04:14
DX: Z13.6 Encounter for screening for cardiovascular disorders (principal)

== ENCOUNTER 2020-12-12 06:38 | Outpatient (CLI) | payer SELFPAY | END 2020-12-12 23:59 | disposition home or self-care (01) | LOC: HW VAS 06:38 | DX: Z13.6 Encounter for screening for cardiovascular disorders (principal) ==